=== PATIENT | female | born 2005 | race African-American/Black ===

== ENCOUNTER 2024-10-21 07:12 | Emergency (ER) | payer OTHER, SELFPAY ==
[2024-10-21 07:17] VITALS: BP 166/98; PULSE 82; TEMP 36.8; O2SAT 99; BMI 47.9
--- NOTE | 2024-10-21 07:24 | ED_ITS ---
HPI HPI - General Adult General Chief complaint: Wound/Laceration Stated complaint: upper extremity injury - [facility] Time Seen by Provider: 10/21/24 07:22 Source: patient Mode of arrival: walk-in Limitations: no limitations History of Present Illness HPI narrative: The patient is coming to us from work she works in [employer] and she had a laceration to the right forearm that she sustained at work from a metal object, the patient denies any other complaint and she is up-to-date with her vaccination Related Data Home Medications ?Medication ?Instructions ?Recorded ?Confirmed No Known Home Medications 10/21/24 0807/12 Allergies Allergy/AdvReac Type Severity Reaction Status Date / Time No Known Drug Allergies Allergy Verified 10/21/24 07:17 Review of Systems ROS Status of ROS 10 or more systems reviewed and unremark able except as noted in history and below PFSH PFSH Social History Little interest or pleasure in doing things: not at all Feeling down, depressed, or hopeless: not at all Exam Narrative Exam Narrative: Nurses notes and vital signs reviewed and patient is not hypoxic. General: Well-appearing and in no apparent distress. Skin: Warm, dry, no pallor noted. No rash. Right arm examination: The patient have a 2 cm linear laceration just almost 12 cm proximal to the wrist on the right side it is going through the epidermis but is not exposing any underlying structures and the patient have no tendon injury with a full range of movement preserved in the wrist and fingers Good radial pulse and no vascular injury detected the bleeding was controlled Constitutional Vital Signs, click to edit/add: Last Vital Signs Temp 98.2 F 10/21/24 07:17 Pulse 82 10/21/24 07:17 Resp 16 10/21/24 07:17 BP 166/98 H 10/21/24 07:17 Pulse Ox 99 10/21/24 07:17 Course Vital Signs Vital signs: Vital Signs Temperature 98.2 F 10/21/24 07:17 Pulse Rate 82 10/21/24 07:17 Respiratory Rate 16 10/21/24 07:17 Blood Pressure 166/98 H 10/21/24 07:17 Pulse Oximetry 99 10/21/24 07:17 Temperature 98.2 F 10/21/24 07:17 Pulse Rate 82 10/21/24 07:17 Respiratory Rate 16 10/21/24 07:17 Blood Pressure 166/98 H 10/21/24 07:17 Pulse Oximetry 99 10/21/24 07:17 Medical Decision Making MDM Narrative Medical decision making narrative: The laceration was cleaned and then infiltrated with 3 cc of 1% lidocaine with no epinephrine The patient had four 5-0 Prolene stitches placed and dressing applied She is up-to-date with her vaccination The patient to take the rest of the day off today and continue work tomorrow Instructed about the proper wound care and laceration stitches care at home Sutures to be removed after 5 to 7 days Discharge Plan Discharge Chief Complaint: Wound/Laceration Clinical Impression: Laceration Patient Disposition: Home, Self-Care Condition: Good Prescriptions / Home Meds: No Action No Known Home Medications Print Language: Andorran Instructions: Laceration (ED) Referrals: Physician,Non-Staff, MD [Primary Care Provider] - 1 week
[2024-10-21] MEDS: LIDOCAINE HCL 1% 100 MG/10 ML MDV INJ (07:40)
== END 2024-10-21 08:23 | disposition home or self-care (01) ==
PROVIDERS: Emergency Provider Emergency Medicine
DX: S51.811A Laceration without foreign body of right forearm, initial encounter (principal); W26.9XXA Contact with unspecified sharp object(s), initial encounter; Y92.63 Factory as the place of occurrence of the external cause
CPT/HCPCS: 12001; 99282